=== PATIENT | female | born 1965 | race Hispanic/Latino ===

== ENCOUNTER 2017-12-28 06:23 | Emergency (ER) | payer MEDICARE ==
[2017-12-28] MEDS ORDERED: ACETAMINOPHEN-CODEINE 300/30MG TAB ONE (06:45)
== END 2017-12-28 09:38 | disposition home or self-care (01) ==
LOC: EDH 06:23
DX: S00.03XA Contusion of scalp, initial encounter (principal); S16.1XXA Strain of muscle, fascia and tendon at neck level, initial encounter; W18.39XA Other fall on same level, initial encounter; Y93.01 Activity, walking, marching and hiking; Y92.89 Other specified places as the place of occurrence of the external cause; Y99.8 Other external cause status
CPT/HCPCS: 70450; 72040